=== PATIENT | male | born 1950 | race Hispanic/Latino ===

== ENCOUNTER → 2020-08-04 | Outpatient (CLI) | payer MEDICARE ==
[~2020-08-04] MED LIST: FENTANYL CITRATE/PF 100MCG/2 ML INJ ONE; LIDOCAINE HCL 1% LOCAL INJ 20 ML VIAL ONE; MIDAZOLAM HCL 2 MG/2 ML VIAL ONE
[2020-08-04 09:07] LABS: HEMOGLOBIN 13.5 g/dL (14.0-18.0)
[2020-08-04 09:33] LABS: INR 0.83; PROTHROMBIN TIME 11.9 seconds (11.9-14.5)
[2020-08-04 09:34] LABS: PARTIAL THROMBOPLASTIN TIME 31.3 seconds (23.8-35.5)
== END ==
LOC: US 08:34
PROVIDERS: ATTEND Internal Medicine Gastroenterology
DX: Z01.812 Encounter for preprocedural laboratory examination (principal); Z20.822 Contact with and (suspected) exposure to COVID-19; R74.8 Abnormal levels of other serum enzymes
CPT/HCPCS: 36415; 47000; 76942; 85014; 85049; 85610; 85730; 88307; 88313; J2250; J3010; U0002; J2001